=== PATIENT | male | born 1970 | race Caucasian/White ===

== ENCOUNTER 2016-09-26 14:23 | Emergency (ER) | payer OTHER ==
[~2016-09-26 14:23] MED LIST: CLONAZEPAM2 MG PO; SERO100 PO; SEROQUEL XR300 M1 PO
[2016-09-26 17:16] VITALS: BP 135/79
== END 2016-09-26 17:16 | disposition home or self-care (01) ==
LOC: ED 14:23
DX: K59.00 Constipation, unspecified (principal)

== ENCOUNTER 2017-03-10 19:08 | Emergency (ER) | payer OTHER ==
[2017-03-10 20:41] LABS: BASOPHIL % 0.8 % (0-2); PLATELET COUNT 271 x10^3mcL (130-400); RED CELL DISTRIBUTION WIDTH 13.4 % (11.5-14.5)
[2017-03-10 20:53] LABS: AMPHETAMINE QUAL UR NONE DETECTED (NEG <=1000)
[2017-03-10 20:53] LABS: CALCIUM 8.9 mg/dL (8.5-10.1); CARBON DIOXIDE 24.8 mmol/L (21-32); CHLORIDE SERUM 103 mmol/L (98-107); CREATININE SERUM 1.1 mg/dL (0.7-1.3); GFR1 > 60 mL/min; GLUCOSE SERUM 145 mg/dL (74-106); POTASSIUM SERUM 3.4 mmol/L (3.5-5.1); SODIUM SERUM 139 mmol/L (136-145)
[2017-03-10 21:06] LABS: ALBUMIN 4.4 g/dL (3.4-5.0); ALKALINE PHOSPHATASE 131 U/L (46-116); ALT/SGPT 50 U/L (16-63); AST/SGOT 23 U/L (15-37); BILIRUBIN TOTAL 0.27 mg/dL (0.20-1.00); FREE T4 0.92 ng/dL (0.76-1.46); TOTAL PROTEIN, SERUM 7.5 g/dL (6.4-8.2)
[2017-03-10 21:16] VITALS: BP 149/86
== END 2017-03-10 21:16 | disposition left against medical advice (07) ==
LOC: ED 19:08
PROVIDERS: Emergency Medicine
DX: G40.409 Other generalized epilepsy and epileptic syndromes, not intractable, without status epilepticus (principal); F20.9 Schizophrenia, unspecified
CPT/HCPCS: 36415; 84439; 87804; G0480

== ENCOUNTER 2019-08-11 20:45 | Emergency (ER) | payer OTHER ==
[~2019-08-11] VITALS: Ht 180.3 cm; Wt 74.8 kg
[2019-08-11 20:45] VITALS: Ht 180.3 cm; Wt 74.8 kg
[2019-08-11 21:35] LABS: BASOPHIL % 0.3 % (0-2); PLATELET COUNT 305 x10^3mcL (130-400); RED CELL DISTRIBUTION WIDTH 13.8 % (11.5-14.5)
[2019-08-11 21:54] LABS: ALKALINE PHOSPHATASE 103 U/L (46-116); ALT/SGPT 36 U/L (16-63); AST/SGOT 23 U/L (15-37); BILIRUBIN DIRECT 0.22 mg/dL (0.0-0.2); BILIRUBIN TOTAL 0.4 mg/dL (0.20-1.00); CALCIUM 8.9 mg/dL (8.5-10.1); CARBON DIOXIDE 26.3 mmol/L (21-32); CHLORIDE SERUM 101 mmol/L (98-107); CREATININE SERUM 1.2 mg/dL (0.7-1.3); GFR1 > 60 mL/min; GLUCOSE SERUM 88 mg/dL (74-106); LIPASE 86 IU/L (73-393); POTASSIUM SERUM 3.3 mmol/L (3.5-5.1); SODIUM SERUM 139 mmol/L (136-145); TOTAL PROTEIN, SERUM 7.1 g/dL (6.4-8.2)
[2019-08-11 22:35] LABS: UA SPECIFIC GRAVITY <=1.005 (1.005-1.035); microscopic required? YES; urine erythrocyte TRACE (NEGATIVE)
[2019-08-11 22:53] LABS: AMPHETAMINE QUAL UR NONE DETECTED (See below)
[2019-08-11 23:18] VITALS: BP 149/85
== END 2019-08-11 23:18 | disposition home or self-care (01) ==
LOC: ED 20:45
PROVIDERS: Student in an Organized Health Care Education/Training Program
DX: S01.112A Laceration without foreign body of left eyelid and periocular area, initial encounter (principal); G40.909 Epilepsy, unspecified, not intractable, without status epilepticus; R41.82 Altered mental status, unspecified; X58.XXXA Exposure to other specified factors, initial encounter; Y93.89 Activity, other specified; Y92.89 Other specified places as the place of occurrence of the external cause; Y99.8 Other external cause status
CPT/HCPCS: 82962; 90715; G0480; J2001

== ENCOUNTER 2019-08-22 13:33 | Emergency (ER) | payer OTHER ==
[~2019-08-22] VITALS: Ht 180.3 cm; Wt 72.6 kg
[2019-08-22 13:58] VITALS: BP 124/87; Ht 180.3 cm; Wt 72.6 kg
== END 2019-08-22 14:17 | disposition home or self-care (01) ==
LOC: ED 13:33
DX: S01.112D Laceration without foreign body of left eyelid and periocular area, subsequent encounter (principal); X58.XXXD Exposure to other specified factors, subsequent encounter

== ENCOUNTER 2020-01-04 16:05 | Emergency (ER) | payer OTHER ==
[~2020-01-04] VITALS: Ht 180.3 cm; Wt 71.7 kg
[2020-01-04 16:48] VITALS: Ht 180.3 cm; Wt 71.7 kg
[2020-01-04 18:05] VITALS: BP 140/75
== END 2020-01-04 18:02 | disposition home or self-care (01) ==
LOC: ED 16:05
DX: R56.9 Unspecified convulsions (principal); Z76.0 Encounter for issue of repeat prescription

== ENCOUNTER 2020-03-03 06:55 | Emergency (ER) | payer OTHER ==
[~2020-03-03] VITALS: Ht 165.1 cm; Wt 86.2 kg
[2020-03-03 07:05] VITALS: Ht 165.1 cm; Wt 86.2 kg
[2020-03-03 08:29] LABS: BASOPHIL % 0.7 % (0.2-1.5); RED CELL DISTRIBUTION WIDTH 13.5 % (12.1-16.2)
[2020-03-03 09:06] LABS: CALCIUM 9.4 mg/dL (8.5-10.1); CARBON DIOXIDE 23.7 mmol/L (21-32); CHLORIDE SERUM 103 mmol/L (98-107); CREATININE SERUM 1.4 mg/dL (0.7-1.3); GFR1 57 mL/min; GLUCOSE SERUM 116 mg/dL (74-106); POTASSIUM SERUM 3.1 mmol/L (3.5-5.1); SODIUM SERUM 143 mmol/L (136-145)
[2020-03-03 09:10] LABS: ALBUMIN 4.6 g/dL (3.4-5.0); ALKALINE PHOSPHATASE 109 U/L (46-116); ALT/SGPT 50 U/L (16-63); AST/SGOT 27 U/L (15-37); BILIRUBIN TOTAL 0.4 mg/dL (0.20-1.00); TOTAL PROTEIN, SERUM 7.2 g/dL (6.4-8.2)
[2020-03-03 09:20] LABS: AMPHETAMINE QUAL UR NONE DETECTED (See below)
[2020-03-03 11:11] LABS: rbc morphology (normal/abnorm) NORMAL (NORMAL)
[2020-03-03 11:12] LABS: PLATELET COUNT 309 x10^3mcL (152-348)
[2020-03-03 14:20] VITALS: BP 128/79
== END 2020-03-03 14:20 | disposition home or self-care (01) ==
LOC: ED 06:55
PROVIDERS: Student in an Organized Health Care Education/Training Program
DX: F20.9 Schizophrenia, unspecified (principal); G25.71 Drug induced akathisia; Z20.828 Contact with and (suspected) exposure to other viral communicable diseases
CPT/HCPCS: G0480; J1200; U0003